=== PATIENT | female | born 1995 | race Caucasian/White ===

== ENCOUNTER 2019-03-08 15:38 | Emergency (ER) | payer MEDICAID, MEDICARE ==
[~2019-03-08] VITALS: Ht 149.9 cm; Wt 68.0 kg
[2019-03-08] MEDS ORDERED: IBUPROFEN 400MG TABLET PO ONE (16:45)
[2019-03-08 17:42] VITALS: BP 133/81
== END 2019-03-08 17:56 | disposition home or self-care (01) ==
LOC: ER 16:00
DX: S09.8XXA Other specified injuries of head, initial encounter (principal); M25.562 Pain in left knee; V43.62XA Car passenger injured in collision with other type car in traffic accident, initial encounter; Y93.89 Activity, other specified; Y92.488 Other paved roadways as the place of occurrence of the external cause
CPT/HCPCS: 73562; 99283